=== PATIENT | male | born 1990 | race Caucasian/White ===

== ENCOUNTER 2021-02-19 16:14 | Emergency (ER) | payer BC ==
[2021-02-19 16:19] VITALS: BP 126/80; PULSE 75; RESP 16; TEMP 98
[2021-02-19] MEDS ORDERED: HYDROcodone/APAP 5-325MG 1 EACH TAB PO STA (16:47)
[2021-02-19] MEDS ORDERED: LIDOCAINE 5% PATCH TOPICAL STA (16:47)
--- NOTE | 2021-02-19 16:50 | ED ---
General Adult HPI - General Chief complaint: Back Pain/Injury Stated complaint: nausea, back pain Time Seen by Provider: 02/19/21 16:20 Source: patient Mode of arrival: ambulatory Limitations: no limitations - History of Present Illness Initial comments: Dictation was produced using [employer] dictation software. please excuse any grammatical, word or spelling errors. Chief Complaint: 22-year-old male presents with 3 months of back pain History of Present Illness: To 22-year-old male is states that he is here in emergency department for evaluation of his back pain. Patient states he has midthoracic back pain. He's been having ongoing pain for the last 3 months. States that his pain really flared up the last couple days. Patient does appear laborious job where he is constantly moving and lifting heavy objects. Denies any numbness and paresthesias to the lower extremities. Pain is nonradiating. States sometimes when it's acts up it makes him feel little nauseated. His worst position is lying flat and lying right lateral decubitus position. States that he feels better when he stretches. No difficulties urinating or stooling. He believes that all of this pain started when he fixed his girlfriends breaks on her car because he was hunched over for several hours. The ROS documented in this emergency department record has been reviewed and confirmed by me. Those systems with pertinent positive or negative responses have been documented in the HPI. All other systems are other negative and/or noncontributory. PHYSICAL EXAM: General Impression: Alert and oriented x3, not in acute distress HEENT: Normocephalic atraumatic, extra-ocular movements intact, pupils equal and reactive to light bilaterally, mucous membranes moist. Cardiovascular: Heart regular rate and rhythm Chest: Able to complete full sentences, no retractions, no tachypnea Abdomen: abdomen soft, non-tender, non-distended, no organomegaly Musculoskeletal: Pulses present and equal in all extremities, no peripheral edema, tenderness to palpation over the mid and lower thoracic spinous processes, no lateral soft tissue palpatory tenderness Motor: no focal deficits noted Neurological: CN II-XII grossly intact, no focal motor or sensory deficits noted Skin: Intact with no visualized rashes Psych: Normal affect and mood ED course: 30-year-old male presents with acute on chronic thoracic back pain. Vital Signs upon arrival are within acceptable limits. Thoracic and lumbar spine x-ray shows no acute processes. Patient reevaluated a t bedside front of his stable medical condition. Patient given prescription for analgesics. He is also given referral to spine surgery. - Related Data Home Medications Medication Instructions Recorded Confirmed Buprenorphine HCl/Naloxone HCl 1 film SL DAILY 02/19/21 02/19/21 [Buprenorphine-Nalox 8-2Mg Film] Ibuprofen [Motrin] 800 mg PO Q8H PRN 02/19/21 02/19/21 Lisdexamfetamine Dimesylate 40 mg PO DAILY 02/19/21 02/19/21 [Vyvanse] Previous Rx's Medication Instructions Recorded Cyclobenzaprine [Flexeril] 10 mg PO TID PRN #20 tab 02/19/21 HYDROcodone/APAP 5-325MG [[place] 1 tab PO Q6HR PRN 3 Days #12 tab 02/19/21 5-325] Allergies Allergy/AdvReac Type Severity Reaction Status Date / Time No Known Allergies Allergy Verified 02/19/21 17:32 Review of Systems ROS Statement: Those systems with pertinent positive or pertinent negative responses have been documented in the HPI. ROS Other: All systems not noted in ROS Statement are negative. Past Medical History Past Medical History: No Reported History History of Any Multi-Drug Resistant Organisms: None Reported Past Surgical History: No Surgical Hx Reported Past Psychological History: No Psychological Hx Reported Smoking Status: Never smoker Past Alcohol Use History: None Reported Past Drug Use History: None Reported General Exam Limitations: no limitations Course Vital Signs 02/19/21 16:17 Temperature 98.0 F Pulse Rate 75 Respiratory 16 Rate Blood Pressure 126/80 O2 Sat by Pulse 100 Oximetry Disposition Clinical Impression: Thoracic back pain Disposition: HOME SELF-CARE Condition: Fair Instructions (If sedation given, give patient instructions): Back Pain (ED) Prescriptions: Cyclobenzaprine [Flexeril] 10 mg PO TID PRN #20 tab PRN Reason: Muscle Spasm HYDROcodone/APAP 5-325MG [[place] 5-325] 1 tab PO Q6HR PRN 3 Days #12 tab PRN Reason: Severe Pain Is patient prescribed a controlled substance at d/c from ED?: Yes If prescribed controlled substance>3 days was MAPS reviewed?: Prescribed <3 Days Referrals: Elizabet Jane DO [Doctor of Osteopathic Medicine] - 1-2 days
--- NOTE | 2021-02-19 17:23 | XR ---
EXAMINATION TYPE: XR lumbar spine 2 or 3V DATE OF EXAM: 02/19/2021 COMPARISON: 09/01/2011 HISTORY: Back pain TECHNIQUE: 3 views FINDINGS: Vertebra have normal alignment. Posterior elements are intact. Sacroiliac joints are intact . There is no compression fracture. Disc spaces are normal. IMPRESSION: Normal lumbar spine. No change.
--- NOTE | 2021-02-19 17:24 | XR ---
EXAMINATION TYPE: XR thoracic spine 2V DATE OF EXAM: 02/19/2021 COMPARISON: NONE HISTORY: Back pain TECHNIQUE: 3 views FINDINGS: Thoracic vertebra have normal spacing and alignment. Posterior elements are intact. There i s no paraspinal mass. There is no compression fracture. IMPRESSION: Negative thoracic spine exam. No fracture.
== END 2021-02-19 17:45 | disposition home or self-care (01) ==
LOC: EC 16:14
DX: M54.6 Pain in thoracic spine (principal)
CPT/HCPCS: 72070; 72100; 99283